=== PATIENT | female | born 1985 | race Caucasian/White ===

== ENCOUNTER 2017-05-30 17:57 | Emergency (ER) | payer BC ==
--- NOTE | 2017-05-30 18:09 | UC ---
Lower Extremity/Ankle HPI - HPI Summary HPI Summary: 31 YEAR OLD FEMALE PRESENTS WITH COMPLAINS OF LEFT BIG TOE PAIN/SWELLING/ DRAINAGE - History of Current Complaint Stated Complaint: LEFT FOOT BIG TOE PAIN Time Seen by Provider: 05/30/17 18:08 Hx Last Menstrual Period: 10/02/2012 - Allergies/Home Medications Allergies/Adverse Reactions: Allergies Allergy/AdvReac Type Severity Reaction Status Date / Time No Known Allergies Allergy Verified 05/30/17 18:13 Home Medications: Home Medications Oral Contraceptive 1 tab PO DAILY 05/30/17 [History] PMH/Surg Hx/FS Hx/Imm Hx - Surgical History Surgical History: None - Social History Substance Use Type: None Review of Systems Constitutional: Negative Skin: Negative Eyes: Negative ENT: Negative Respiratory: Negative Cardiovascular: Negative Gastrointestinal: Negative Genitourinary: Negative Motor: Negative Neurovascular: Negative Musculoskeletal: Other: - LEFT BIG TOE DRAINAGE/PAIN/SWELLING Neurological: Negative Psychological: Negative All Other Systems Reviewed And Are Negative: Yes Physical Exam Triage Information Reviewed: Yes Eye Exam: Normal ENT Exam: Normal Dental Exam: Normal Neck exam: Normal Neck: Positive: 1 Respiratory Exam: Normal Cardiovascular Exam: Normal Abdominal Exam: Normal Musculoskeletal: Positive: Other: - LEFT BIG TOE SWELLING/PAIN/BLOODY DRAINAGE Neurological Exam: Normal Psychological Exam: Normal Skin Exam: Normal Lower Extremity Course/Dx - Differential Dx/Diagnosis Provider Diagnoses: LEFT BIG TOE CONTUSION Discharge - Discharge Plan Condition: Stable Disposition: HOME Prescriptions: Cephalexin CAP* [Keflex CAP*] 500 mg PO TID #30 cap Patient Education Materials: Ingrown Nail (ED), Leg Pain (ED), Nail Avulsion ( ED) Referrals: Cristi Ellis MD [Primary Care Provider] - Enrique Johnson DPM [Doctor of Podiatric Medicine] -
[2017-05-30 18:20] VITALS: BP 118/56
== END 2017-05-30 18:39 | disposition home or self-care (01) ==
LOC: UCCORT 17:57
DX: S90.112A Contusion of left great toe without damage to nail, initial encounter (principal); X58.XXXA Exposure to other specified factors, initial encounter; Y93.9 Activity, unspecified; Y92.9 Unspecified place or not applicable; Y99.9 Unspecified external cause status
CPT/HCPCS: 99212; G0463

== ENCOUNTER 2018-01-24 09:03 | Emergency (ER) | payer BC, OTHER ==
[2018-01-24 09:49] VITALS: BP 126/79
--- NOTE | 2018-01-24 10:17 | UC ---
Upper Extremity HPI - HPI Summary HPI Summary: 32 y/o female presents to the urgent care c/o Rt shoulder pain on and off for the past month. 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 Pain is constant and dull at rest 3/10 and w/ movement 6/10 becomes sharp w/ decrease ROM and unable to raise her up. Pain has worsen for the past 3 days radiating to her RT side of neck w/ mild numbness on the hands. However she has Hx of B/L carpel tunnel syndrome. 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 She took an ibuprofen PO last night, used a heating pad and icy hot which helped her and gave her some relief. She can't recall any specific trauma or injury. Pt denies SORIANO, dizziness , SOB, chest pain, abdominal pain, N/V/D. - History of Current Complaint Chief Complaint: UCUpperExtremity Stated Complaint: (POSS WC)-RT SHOULDER/NECK PAIN.POSS PULLED MUSCLE Time Seen by Provider: 01/24/18 10:05 Hx Obtained From: Patient Hx Last Menstrual Period: last week Onset/Duration: Gradual Onset, Lasting Weeks - 4 weeks, Still Present, Worse Since - 3 days Severity Initially: Mild Severity Currently: Moderate Pain Intensity: 6 - w/ movement Pain Scale Used: 0-10 Numeric Location Of Pain: Is Discrete @ - RT shoulder, Radiates To - RT side of neck Character: Sharp, Dull Aggravating Factor(s): Lifting, Extension, Abduction Alleviating Factor(s): Heat, Ice, OTC Meds, Rest Associated Signs And Symptoms: Positive: Numbness/Tingling. Negative: Swelling , Redness, Fever, Weakness Related History: Dominant Hand Right - Risk Factors Non-Orthopedic Risk Factor: Negative DVT Risk Factors: Negative Septic Arthritis Risk Factor: Negative - Allergies/Home Medications Allergies/Adverse Reactions: Allergies Allergy/AdvReac Type Severity Reaction Status Date / Time No Known Allergies Allergy Verified 01/24/18 09:49 PMH/Surg Hx/FS Hx/Imm Hx Previously Healthy: Yes Other Neurological History: B/L carpel tunnel syndrome - Surgical History Surgical History: None - Family History Known Family History: Positive: Diabetes - Social History Occupation: Employed Part-time Lives: With Family Alcohol Use: Rare Substance Use Type: None Smoking Status (MU): Never Smoked Tobacco Review of Systems Constitutional: Negative Skin: Negative Eyes: Negative ENT: Negative Respiratory: Negative Cardiovascular: Negative Gastrointestinal: Negative Genitourinary: Negative Motor: Decreased ROM - RT shoulder Musculoskeletal: Decreased ROM - RT shoulder, Other: - RT shoulder pain Neurological: Numbness - RT hand at times Hx of carpel tunnel syndrome Psychological: Negative Is Patient Immunocompromised?: No All Other Systems Reviewed And Are Negative: Yes Physical Exam - Summary Physical Exam Summary: Vital Signs Reviewed: Yes General: well developed, well nourished female sitting in the examining table w/ o any apparent distress, Eyes: Positive: Conjunctiva Clear - PERRLA, EOMI, fundi grossly normal ENT: Positive: Normal ENT inspection, Hearing grossly normal, Pharynx normal, TMs normal Neck: Positive: Supple, Nontender, No Lymphadenopathy Respiratory: Positive: Chest non-tender, Lungs clear, Normal breath sounds, No respiratory distress Cardiovascular: Positive: RRR, No Murmur, Pulses Normal, Brisk Capillary Refill Abdomen Description: Positive: Nontender, No Organomegaly, Soft. Negative: CVA Tenderness (R), CVA Tenderness (L) Bowel Sounds: Positive: Present Musculoskeletal: Positive: Strength Intact, Other: - RT shoulder: The RT shoulder is without obvious asymmetry or deformity when compared to the L shoulder. No surface trauma, ecchymosis, crepitus. No bony deformity or prominence of humeral head. No erythema, warmth. tender to palpation over the clavicle,scapula. and over Acromioclavicular joint and humeral head w/o swelling, NT to palpation of the bicipital groove . NT to palpation of the muscles of the sternocleidomastoid, pectoralis,NT over biceps/triceps, deltoid, Mild tenderness over RT trapezius w/ mild muscle spams, . Limited ROM due to pain. "empty can and drop arm test unable to perform due to pain. No axillary tenderness or lymphadenopathy. Normal sensation over the deltoid and fingers. Distal motor and neurovascular status is intact. Neurological Exam: Normal Psychological Exam: Normal Skin Exam: Normal Triage Information Reviewed: Yes Vital Signs: Initial Vital Signs Temp 99.5 F 01/24/18 09:43 Pulse 73 01/24/18 09:43 Resp 14 01/24/18 09:43 BP 126/79 01/24/18 09:43 Pulse Ox 100 01/24/18 09:43 Upper Extremity Course/Dx - Course Course Of Treatment: 32 y/o female presents to the urgent care c/o Rt shoulder pain on and off for the past month. 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 Pain is constant and dull at rest 3 /10 and w/ movement 6/10 becomes sharp w/ decrease ROM and unable to raise her up. Pain has worsen for the past 3 days radiating to her RT side of neck w/ mild numbness on the hands. However she has Hx of B/L carpel tunnel syndrome. 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 She took an ibuprofen PO last night, used a heating pad and icy hot which helped her and gave her some relief. She can't recall any specific trauma or injury. Pt denies SORIANO, dizziness , SOB, chest pain, abdominal pain, N/V/D. Hx obtained. RT shoulder X-ray ordered : Impression: no acute osseous injury or Soft tissue sweeling observed. Pt's Rx Ibuprofen PO and Prednisone PO taper dose and Flexeril to alleviate symptoms. Shoulder immobilized with a shoulder sling for 2-3 days. Advised to f/u with PT referral for further evaluation and Orthopedic DR Wayne referral in 1 week if not improvement of symptoms.Pt understood and agreed w/ plan of care. - Differential Dx/Diagnosis Differential Diagnosis/HQI/PQRI: Arthritis, Contusion, Fracture (Closed), Strain , Sprain, Other - calcific tendonitis, frozen shoulder Provider Diagnoses: 1- Acute Rt shoulder pain. 2- Muscle spasm Discharge - Sign-Out/Discharge Documenting (check all that apply): Discharge - Discharge Plan Condition: Stable Disposition: HOME Prescriptions: Cyclobenzaprine TAB* [Flexeril 10 MG TAB*] 10 mg PO TID PRN #15 tab PRN Reason: Spasms - Muscle Ibuprofen TAB* [Motrin TAB* 800 MG] 800 mg PO Q6H PRN #30 tab PRN Reason: Pain predniSONE TAB* [Deltasone TAB*] 20 mg PO DAILY #11 tab Patient Education Materials: Muscle Spasm (ED), Shoulder Pain (ED) Forms: *Work Release Referrals: [facility] [place] [facility] [Outside] - 1 Week Sree Wayne MD [Medical Doctor] - 1 Week Additional Instructions: 1-Please take medications as directed to alleviate pain and swelling. Please do not drive if Flexeril PO causes drowsiness 2-Please apply ice, keep your shoulder immobilized with the shoulder sling for 2 -3 days and then resume movement slowly 3- Please f/u with Orthopedic DR Wayne or your PCP in 1 week is not improvement of symptoms for further evaluation and treatment. 4-Please f.u PT referral for further treatment. - Billing Disposition and Condition Condition: STABLE Disposition: HOME
[2018-01-24] MEDS: Ibuprofen TAB* 400 MG PO ONE (10:25)
--- NOTE | 2018-01-24 10:55 | RAD ---
Indication: RIGHT shoulder pain with abduction. Onset one month ago with progression with repetitive lifting. Comparison: No relevant prior exams available on the [facility] [place] for comparison. Technique: Internal rotation AP, external rotation Grashey, scapular Y, axillary views RIGHT shoulder Report: Normal acromioclavicular and glenohumeral joint alignment. Negative for fracture. Negative for arthropathic change. Negative for calcific tendinopathy or abnormal soft tissue contour. IMPRESSION: Negative radiographic exam of the RIGHT shoulder
== END 2018-01-24 11:12 | disposition home or self-care (01) ==
LOC: UCCORT 09:03
DX: M25.511 Pain in right shoulder (principal); M62.838 Other muscle spasm; X50.3XXA Overexertion from repetitive movements, initial encounter; X50.0XXA Overexertion from strenuous movement or load, initial encounter; Y93.89 Activity, other specified; Y92.69 Other specified industrial and construction area as the place of occurrence of the external cause; Y99.0 Civilian activity done for income or pay
CPT/HCPCS: 99212; 99213; A9270-GY; G0463